=== PATIENT | female | born 1980 | race American Indian/Alaskan Native ===

== ENCOUNTER 2020-10-03 01:33 | Inpatient (IN) | payer SELFPAY ==
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
[2020-10-03] MEDS ORDERED: SODIUM CHLORIDE 0.9% 50 ML IVPB IV ONE (03:41)
[2020-10-03] MEDS ORDERED: ALTEPLASE 100 MG INJ KIT IV ONE ×2 (03:41)
[2020-10-03 04:15] LABS: Basophils % (Auto) 0.5 % (0.0-1.8); Eosinophils # (Auto) 0.1 K/mm3 (0.0-0.4); Eosinophils % (Auto) 1.2 % (0.0-4.3); Hematocrit 27.6 % (30.3-42.9); Hemoglobin 9.3 gm/dl (10.1-14.3); Lymphocytes # (Auto) 0.5 K/mm3 (1.2-5.4); Lymphocytes % (Auto) 10.9 % (13.4-35.0); Mean Corpuscular HGB Conc 34 % (30-34); Mean Corpuscular Volume 107 fl (79-97); Monocytes # (Auto) 0.4 K/mm3 (0.0-0.8); Monocytes % (Auto) 7.1 % (0.0-7.3); Platelet Count 192 K/mm3 (140-440); Red Blood Count 2.57 M/mm3 (3.65-5.03)
[2020-10-03 04:27] LABS: INR 1.08 (0.87-1.13)
[2020-10-03 04:28] LABS: Thrombin Time 16.1 Sec. (15.1-19.6)
[2020-10-03 04:41] LABS: Blood Urea Nitrogen 8 mg/dL (7-17); Calcium 8.3 mg/dL (8.4-10.2); Hemolysis Index 8
[2020-10-03 04:43] LABS: Creatine Kinase MB 1.9 ng/mL (0.0-4.0)
[2020-10-03 04:45] LABS: BUN/Creatinine Ratio 16
[2020-10-03] MEDS ORDERED: SODIUM CHLORIDE 0.9% 1000 ML 1,000 ML IV SCH (05:45)
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
--- NOTE | 2020-10-03 06:37 | Cat Scan Report ---
CT angio head INDICATION / CLINICAL INFORMATION: 40 years Female; Stroke-Like Symptoms. TECHNIQUE: Thin cut axial images obtained through the head during IV bolus contrast administration. S agittal, coronal, and 3 plane MIP reconstructions performed by the technologist. NASCET type criteria used evaluate stenoses. Automated exposure control utilized for radiation reduction purposes. COMPARISON: None available. FINDINGS: INTERNAL CAROTID ARTERIES: There is no significant focal stenosis involving intracranial ICAs by NASC ET criteria. 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 There is no significant focal narrowing involving the basilar artery. CEREBRAL ARTERIES: The proximal cerebral arteries and adjacent segments also appear to demonstrate ap propriate caliber without focal narrowing. ANEURYSM: None identified. ADDITIONAL FINDINGS: The dural venous sinuses opacify with contrast. IMPRESSION: There is no CTA evidence of large vessel occlusion Signer Name: Valentin Casillas MD Signed: 10/03/2020 6:32 AM Workstation Name: [id number]
[2020-10-03] MEDS ORDERED: PANTOPRAZOLE 40 MG TAB PO SCH (07:30)
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
[2020-10-03] MEDS ORDERED: MORPHINE 2 MG/1 ML INJ IV PRN (09:00)
[2020-10-03] MEDS ORDERED: ONDANSETRON 4 MG/2 ML INJ IV PRN (09:00)
--- NOTE | 2020-10-03 10:04 | Magnetic Resonance Report ---
MR brain wo con, MR MRA/MRV head wo con, MR MRA/MRV neck wo con INDICATION / CLINICAL INFORMATION: stroke, rt sided weakness. TECHNIQUE: Multiplanar, multisequence MRI of the brain. MRA of the head and MRA of the neck are performed. 3-D/MIP reformats postprocessed. Percentage stenos is is determined by direct quantitative measurements of distal internal carotid artery diameter amie red with normal reference segments or by criteria similar to NASCET where applicable. COMPARISON: CT head October 03, 2020 FINDINGS: BRAIN: Intracranial: No restricted diffusion. No hemorrhage. Ventricular caliber is normal. No extra-axial c ollection. No mass. No herniation. Orbits: No significant abnormality of visualized orbits. Sinuses/mastoid: No significant abnormality of visualized sinuses and mastoid air cells. Additional findings: None. MRA HEAD: Intracranial vertebral arteries: No occlusion or significant stenosis. Basilar artery: No occlusion or significant stenosis. Posterior cerebral arteries: No occlusion or significant stenosis. Intracranial internal carotid arteries: No occlusion or significant stenosis. Anterior cerebral arteries: No occlusion or significant stenosis. Middle cerebral arteries: No occlusion or significant stenosis. No aneurysm. Additional findings: None. MRA NECK: Cervical vertebral arteries: No occlusion or significant stenosis. Common carotid arteries: No occlusion or significant stenosis. Cervical internal carotid arteries: No occlusion or significant stenosis. Additional findings: None. IMPRESSION: 1. No significant intracranial abnormality. 2. No occlusion or significant stenosis of the major head and neck vasculature. Signer Name: Johann Camarena MD Signed: 10/03/2020 9:59 AM Workstation Name: [id number]
[2020-10-03] MEDS: POTASSIUM CHLORIDE ER 20 MEQ TAB PO SCH ×2 (11:11→22:19)
[2020-10-03] MEDS: ACETAMINOPHEN 325 MG TAB PO PRN ×2 (11:11→22:31)
--- NOTE | 2020-10-03 15:10 | Event Note ---
Date: 10/03/20 Patient seen and examined at the bedside with critical care team. Patient states that she continues to have right-sided weakness, neurology has evaluated the patient status post TPA. Patient complains of headache, will obtain CT of head to rule out any hemorrhage. PT/OT has been working with the patient, patient is stable for transfer to the floor. Agree assessment and plan as outlined by admitting physician.
[2020-10-03] MEDS: CYCLOBENZAPRINE 10 MG TAB PO PRN ×2 (15:26→22:30)
--- NOTE | 2020-10-03 16:36 | Cat Scan Report ---
CT head/brain wo con INDICATION: Headache status post TPA. TECHNIQUE: All CT scans at this location are performed using CT dose reduction for ALARA by means of automated e xposure control. COMPARISON: Brain MRI on 10/03/2020 FINDINGS: There is no evidence of hemorrhage, hydrocephalus, brain edema, or mass effect/mass lesion. There is overall normal brain formation and brain volume for the patient's age. Ventricular and cisternal/sulc al size is normal for age. The included paranasal sinuses and mastoid air cells are clear. The orbits appear unremarkable. IMPRESSION: 1. No acute intracranial abnormality. Signer Name: Maycol Wesley MD Signed: 10/03/2020 4:32 PM Workstation Name: [id number]
[2020-10-03 16:56] LABS: Chol/HDL Ratio 4.68 %
[2020-10-03] MEDS: BUTALB/ACETAMINOPHEN/CAFFEINE TAB PO PRN ×2 (17:30→22:30)
[2020-10-04 06:56] VITALS: BP 129/66
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
--- NOTE | 2020-10-04 10:39 | Electrocardiograph Report ---
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
== END 2020-10-04 07:20 | disposition left against medical advice (07) | DRG 63 ==
LOC: ED 01:33 → CC1 04:53 → OBSVTOIN 08:18 → IMCU 19:17
PROVIDERS: ADMIT Hospitalist; ATTEND Family Medicine
DX: I63.9 Cerebral infarction, unspecified (principal); R29.703 NIHSS score 3; Z88.0 Allergy status to penicillin; Z91.013 Allergy to seafood
CPT/HCPCS: 36415; 70450; 70496; 70544; 70547; 70551; 72125; 80048; 80061; 80320; 82550; 82553; 82962; 83036; 84484; 84703; 85025; 85610; 85670; 85730; 93005; 93306; 96374; 96375; G0378; A9270-GY; G0480; J2270; J2405; J2997; Q9967